=== PATIENT | male | born 1975 | race African-American/Black ===

== ENCOUNTER 2016-10-31 19:11 | Emergency (ER) | payer MEDICAID ==
[~2016-10-31] VITALS: Ht 188 cm; Wt 79.4 kg
[~2016-10-31 19:11] MED LIST: ALBUTEROL SULF8.5 GM INH; FLUOXETINE HCL20 M2 ORAL; IBUPROFEN600 MG ORAL; NKM; RISPERDAL2 MG ORAL; ZYPREXA10 MG ORAL; [UNRECOGNIZED DRUG - OTHER]
[2016-10-31 19:50] VITALS: BP 122/79
[2016-10-31] MEDS ORDERED: PROAIR HFA8.5 GM INH ×2 (19:51→20:05)
[2016-10-31] MEDS ORDERED: FLUOXETINE HCL10 MG ORAL (19:51)
[2016-10-31] MEDS ORDERED: RISPERDAL0.25 MG ORAL (19:51)
[2016-10-31] MEDS ORDERED: RISPERDAL2 MG ORAL (20:05)
[2016-10-31] MEDS ORDERED: FLUOXETINE HCL20 M2 ORAL (20:05)
[2016-10-31 20:11] VITALS: BP 122/79
--- NOTE | 2016-10-31 22:17 | Emergency Room Report ---
History of Present Illness General Chief Complaint: General Complaint Source: Patient Present Illness HPI The patient is a 41-year-old male with a history of schizophrenia, depression, and asthma presenting for medication refills. The patient states that he ran out of medications 2 days ago. The patient is asking for Risperdal, fluoxetine , and albuterol. The patient states that he has not seen a psychiatrist in the past year. Patient denies any suicidal ideation or self harm. Patient denies any other symptoms including nausea, vomiting, fever, chills, headache, dizziness, blurred vision, shortness of breath, chest pain, fatigue Allergies: Coded Allergies: NO KNOWN ALLERGIES (Unverified Allergy, Unknown, 08/16/15) Patient History Past Medical History: see triage record Pertinent Family History: none Reviewed Nursing Documentation: PMH: Agreed, PSxH: Agreed Nursing Documentation-PMH Hx Asthma: Yes History Of Psychiatric Problem: Yes - Depression, Schizophrenia Review of Systems All Other Systems: negative except mentioned in HPI Physical Exam Vital Signs Date Time Temp Pulse Resp B/P Pulse Ox O2 Delivery O2 Flow Rate FiO2 10/31/16 19:45 98.1 95 16 122/79 99 Room Air Sp02 EP Interpretation: reviewed, normal General Appearance: no apparent distress, alert, GCS 15, non-toxic Head: normocephalic, atraumatic Eyes: bilateral eye PERRL, bilateral eye normal inspection ENT: hearing grossly normal, normal pharynx, no angioedema, normal voice Respiratory: chest non-tender, lungs clear, normal breath sounds, speaking full sentences Cardiovascular #1: regular rate, rhythm, no edema Genitourinary: normal inspection, no CVA tenderness Musculoskeletal: back normal, gait/station normal, normal range of motion, non- tender Neurologic: alert, oriented x3, responsive, motor strength/tone normal, sensory intact, normal gait, speech normal Psychiatric: judgement/insight normal, memory normal, mood/affect normal, no suicidal/homicidal ideation Suicide Risk Assessment: Suicidal Ideation: No Had intent to initiate attempt: No Pt's plan for suicide attempt: No Has means to complete attempt: No Skin: normal color, no rash, warm/dry, well hydrated Lymphatic: no adenopathy Medical Decision Making PA Attestation Dr. Smiley is my supervising physician. Patient management was discussed with my supervising physician Diagnostic Impression: Primary Impression: Depression Additional Impression: Psychosis ER Course The patient is a 41-year-old male with a history of schizophrenia, depression, and asthma presenting for medication refills Differential diagnoses considered but not limited to suicidal ideation, homicidal ideation, depression, psychosis PE: No apparent distress. A&Ox4 PERRL. EOMI. Normal mentation. RRR. No MRG Lungs CTA bilat Abdomen: Normal appearance. Non distended. No ecchymosis. Skin is warm and dry, no rashes. The patient is given a prescription for limited refill of these medications. Patient is given information regarding [facility]. ER precautions are given Last Vital Signs Date Time Temp Pulse Resp B/P Pulse Ox O2 Delivery O2 Flow Rate FiO2 10/31/16 20:11 98.1 95 16 122/79 99 Room Air Status: improved Disposition: HOME, SELF-CARE Condition: Improved Scripts Albuterol Sulfate* (PROAIR HFA*) 8.5 Gm Hfa.aer.ad 2 PUFFS INH Q6H, #8.5 GM 0 Refills Prov: SAVI GRIMESA. 10/31/16 Risperidone* (RISPERDAL*) 2 Mg Tablet 4 MG ORAL DAILY, #60 TAB 0 Refills Prov: GOANSAVI P.A. 10/31/16 Fluoxetine Hcl* (FLUOXETINE HCL*) 20 Mg Tablet 20 MG ORAL DAILY, #30 TAB Prov: SAVI GRIMES P.A. 10/31/16 Referrals: NOT CHOSEN [facility]/MD,REFERRING (PCP) Patient Instructions: Psychosis, Depression, Adult Additional Instructions: I discussed my findings with the patient. All questions and concerns have been answered. Treatment and medication compliance have been addressed. I advised the patient that they need to follow up with PMD in 3-5 days. Return to ED if symptoms worsen, new symptoms arise, or if needed for any reason. Patient verbalized understanding of discharge instructions. Please see psychiatrist HIEU for further care and evaluation SAVI GRIMES Oct 31, 2016 22:17
== END 2016-10-31 20:11 | disposition home or self-care (01) ==
LOC: EMR 20:03
DX: F32.9 Major depressive disorder, single episode, unspecified (principal); Z76.0 Encounter for issue of repeat prescription; F29 Unspecified psychosis not due to a substance or known physiological condition; F20.9 Schizophrenia, unspecified; J45.909 Unspecified asthma, uncomplicated
CPT/HCPCS: 99284